=== PATIENT | male | born 1960 | race Caucasian/White ===

== ENCOUNTER 2016-12-30 03:33 | Inpatient (IN) ==
[2016-12-30] MEDS ORDERED: KETOROLAC 30 MG/ML INJECTION IVP ONE (03:44)
[2016-12-30] MEDS ORDERED: METOCLOPRAMIDE 10mg/2ml INJECTION IVP ONE (03:44)
[2016-12-30] MEDS ORDERED: HYDROMORPHONE 2 MG/ML INJECTION IVP ONE (03:44)
--- NOTE | 2016-12-30 03:56 | Emergency Department Report ---
Abdominal Pain HPI - General Stated Complaint: Severe stomach pain Time Seen by Provider: 12/30/16 03:43 Source: patient, family Mode of arrival: ambulatory Limitations: no limitations - History of Present Illness HPI narrative: Patient reports to ED with severe cramping RUQ abdominal pain with radiation to the LUQ that began two hours ago. He is scheduled for a robotic cholecystectomy later today with Dr. Ceron, and has been taking Olin for his gallbladder attacks. He was not able to take his Olin tonight since he is NPO for surgery today. This feels like a typical attack for him, differs only in being more severe. He has been following a strict low fat diet since he started having problems with his gallbladder, which has been helping a little. Pt denies nausea , vomiting, fever, diarrhea. - Related Data Home Medications Medication Instructions Recorded Confirmed No known Home medications [No home 12/29/16 12/29/16 meds] Allergies Allergy/AdvReac Type Severity Reaction Status Date / Time meperidine Allergy Unknown HIVES Verified 12/29/16 11:23 Review of Systems All systems: reviewed and negative except as stated Gastrointestinal: Reports: as per HPI PFSH Patient Stated Medical History Gastroesophageal Reflux Yes Disease cholelithiasis Surgical History: none - Social History Smoking status: Never smoker Physical Exam - General General appearance: alert, in distress (appears to be in pain, tachypneic and groaning loudly) - Normal Exams: Head:: Normocephalic without trauma Neck:: Full range of motion, without adenopathy, JVD, bruits or thyromegaly Chest/Respirations:: Clear all vazquez, with good airflow, and symmetry bilaterally Cardiovascular:: Regular rate and rhythm, without murmur or gallop, Pulses 2+ all extremities, capillary refill, <2 seconds all extremities Integumentary:: No rashes, hives, or bruising noted, hair and nails, without abnormality Neurological:: Patient is alert, and oriented, cranial nerves, motor/sensory/ cerebellar, exams w/o gross deficits, to observation Psychiatric:: Patient exhibits, appropriate attention, emotion and affect - Abdominal Exam Abdominal exam: Present: soft, tenderness (exquisitely TTP on RUQ > LUQ), guarding, rigidity, normal bowel sounds. Absent: distention, trauma, ascites, mass, pulsatile mass Abdominal Pain - MDM Narrative Medical decision making narrative: Pt given dilaudid 0.5 mg IV, toradol 30 mg IV, and reglan 10 mg IV to moderate relief CBC - n CMP/L - significant liver enzyme elevation in the 3-500 range, severe elevated lipase at 36,[address] Ceron, will admit the patient for admission to surgical for obstructive pancreatitis. - Lab Data Result diagrams: 12/30/16 04:15 12/30/16 04:15 Disposition Clinical Impression: Gallstones Pancreatitis due to biliary obstruction Qualifiers: Chronicity: acute Acute pancreatitis complication: no infection or necrosis Qualified Code(s): K85.10 - Biliary acute pancreatitis without necrosis or infection Disposition: 02 To [facility] [place] Acute Care Condition: Improved Prescriptions: No Action No known Home medications [No home meds] 0 #0 [facility] [place] Referrals: Valentin Riojas DO [Family Provider] - - Seen By: physician
[2016-12-30] MEDS ORDERED: NS 1,000 ML IV ONE (04:18)
[2016-12-30] MEDS ORDERED: METOCLOPRAMIDE 10mg/2ml INJECTION IVP PRN (05:09)
[2016-12-30] MEDS: SALINE FLUSH 10ml SYRINGE IVF PRN ×2 (06:17→18:39)
[2016-12-30] MEDS: NS 1,000 ML IV SCH ×2 (06:17→19:38)
[2016-12-30] MEDS: HYDROMORPHONE 2 MG/ML INJECTION IVP PRN ×3 (12:11→23:38)
--- NOTE | 2016-12-30 18:53 | History and Physical ---
DATE OF SERVICE 12/30/2016 FINDINGS Mr. Ledesma is a 56-year-old gentleman who had been scheduled today to undergo a robotic-assisted laparoscopic cholecystectomy secondary to symptomatic cholelithiasis. Patient states that earlier this week he began to experience a component of some abdominal discomfort and felt that he was having another "gallbladder attack." The patient states that last evening he knew he was not going to be able to eat after midnight and had some eggs and toast. Patient states that he had eaten eggs and toast perhaps about 10 o'clock to 11 o'clock at night. Patient states that shortly after this he began to experience a component of severe abdominal pain. Pain was described as being throughout his entire abdomen and radiated in towards his back. Patient states the pain lasted for several hours and he was "not able to get comfortable." As a result of this severe pain he presented to the emergency room facility earlier this morning. Upon laboratory evaluation the patient was found to have marked elevation of his lipase consistent with that of gallstone pancreatitis. Patient was subsequently admitted to the hospital for further care. The patient was seen earlier this morning on rounds. He states that he was feeling significantly better and that his pain had resolved. He was requesting some oral intake. PAST MEDICAL HISTORY CHRONIC ILLNESS/SYSTEM DISORDERS None. PAST SURGICAL HISTORY Colonoscopy. MEDICATIONS [place] 5 on a p.r.n. basis Cialis on a p.r.n. basis ALLERGIES Demerol. SOCIAL HISTORY The patient consumes alcohol. Denies tobacco use. FAMILY HISTORY Significant for diabetes within his mother. Heart disease within his father. REVIEW OF SYSTEMS Review of systems undertaken with the patient and essentially negative except as stated above in FINDINGS section and PAST MEDICAL HISTORY section for Constitutional, HEENT, Cardiac, Respiratory, GI, , Musculoskeletal, Hematology/Oncology, Endocrine, Psychiatric. PHYSICAL EXAM GENERAL: The patient is a 56-year-old gentleman whom I saw earlier this morning. As stated above, he did not appear to be in any VITAL SIGNS: Vitals earlier this morning included a temperature of 99.0, pulse 71, respirations 16, blood pressure 164/84, SAO2 98% on room air. HEENT: Normocephalic. Pupils are equally round and react to light and accommodation. NECK: Supple without lymphadenopathy. CHEST: Clear to auscultation bilaterally. HEART: Regular rate and rhythm. Normal S1 and S2 without gallops, murmurs or clicks. ABDOMEN: Palpation of the abdomen did reveal some mild tenderness within the epigastric region. There was, however, no evidence for guarding or rebound. EXTREMITIES: Without clubbing, cyanosis, or edema. NEURO: Cranial nerves II-XII grossly intact. Patient is without focal motor or sensory deficits. LABORATORY/RADIOGRAPHIC EVALUATION The patient had a CBC upon admission that was unremarkable. CMP was obtained as well as a lipase level. CMP did reveal elevation of his total bilirubin of 3.2. AST, ALT, alkaline phosphatase were elevated at 315, 562 and 217, respectively. Lipase was elevated at 36,764. ASSESSMENT 56-year-old gentleman with gallstone pancreatitis. PLAN I did speak with the emergency room physician last evening and it was my recommendation that we go ahead and admit the patient and continue with ongoing IV fluids, antiemetics and intravenous narcotics as needed for pain. Patient does appear to be improving from a clinical standpoint. His abdominal pain has markedly improved. I do believe that we could go ahead and give the patient some liquids sparingly. Will recheck lipase level and CMP tomorrow. Will continue to follow along closely in the patient's care. Once his lipase level has returned towards normal, at that time may proceed with surgical intervention /robotic-assisted laparoscopic cholecystectomy. If patient's bilirubin continues on an upward trend in addition with his lipase, the patient may need to be transferred to [place] to undergo ERCP. ARNOL
[2016-12-31] MEDS: HYDROMORPHONE 2 MG/ML INJECTION IVP PRN ×4 (07:29→22:16)
[2016-12-31] MEDS: NS 1,000 ML IV SCH (10:12)
--- NOTE | 2016-12-31 11:11 | Consult Note ---
<FaraLenka D - Last Filed: 12/31/16 12:12> Consult Information - Data of Consult Patient: new to practice Requesting Physician: Joe Ceron MD Primary Care Provider: Valentin Riojas DO Family Provider: Valentin Riojas DO - Consult Narrative Reason for consult: HTN History of present illness: Donna Ledesma is a relatively healthy 56-year-old male who is seen in consultation from Dr. Ceron. He was admitted on 12/30/16 for gallstone pancreatitis, under Dr. Ceron's service. His lipase at that time was 36,000. LFTs were also elevated. White count was normal. The patient has had persistently elevated blood pressures up to 181/109, since yesterday morning. There is one outlier low reading of 87/59, but since then blood pressure has mostly been at least moderately elevated, if not higher. The patient reports having a history of hypertension, but has not ever taken any antihypertensives. He denies any chest pain or anginal equivalents, or shortness of breath. No cough/congestion. No weakness/dizziness/lightheadedness or paresthesias. His primary complaints are abdominal in nature, consistent with his primary diagnosis (abdominal pain, nausea/vomiting; no diarrhea/constipation); his abdominal pain is a little better compared to yesterday. His also reports he's had fevers/chills at home. Note: BP in office on 11/23/16 was 138/82; 12/09/16 it was 122/80; 12/15/16 120/78 ; in 2014 it was 140/85 PFSH GERD HTN Obesity Surgical History: colonoscopy 10/07/14 - normal Family History: Mother: Diabetes, hypertension, hyperlipidemia, thyroid disorder. Father: Heart disease, hypertension, hyperlipidemia. - Social History Smoking status: Never smoker Alcohol intake frequency: a few times a week Current occupational status: employed Does patient use chewing tobacco?: Yes Review of Systems All systems: reviewed and no additional remarkable complaints except as stated - Constitutional Constitutional: Present: chills, fever(s). Absent: headache(s) - EENMT Nose: Absent: obstruction Mouth/Throat: Absent: sore throat - Cardiovascular Cardiovascular: Absent: chest pain, syncope Vascular: Absent: pedal edema - Respiratory Respiratory: Absent: cough, dyspnea - Gastrointestinal Gastrointestinal: Present: abdominal pain, nausea, vomiting. Absent: constipation, diarrhea - Genitourinary Genitourinary: Present: other (dark colored urine in the end of October - saw Dr. Riojas) - Musculoskeletal Musculoskeletal: Absent: joint swelling, muscle weakness - Integumentary/Breasts Integumentary: Absent: rash, wounds - Neurological Neurological: Absent: focal weakness, frequent falls, numbness, paresthesias - Psychiatric Psychiatric: Absent: anxiety, depression - Hematologic/Lymphatic Hematologic/Lymphatic: Absent: easy bleeding, easy bruising Medications Home Medications Medication Instructions Recorded Confirmed Type No known Home medications [No home 12/29/16 12/29/16 History meds] Allergies Allergy/AdvReac Type Severity Reaction Status Date / Time meperidine Allergy Unknown HIVES Verified 12/30/16 05:47 Exam Vital Signs: Temperature 97.6 F 12/31/16 07:38 Pulse Rate 77 12/31/16 07:38 Respiratory Rate 16 12/31/16 07:38 Blood Pressure 155/99 H 12/31/16 07:59 Pulse Oximetry 94 12/31/16 07:38 Oxygen Delivery Method Room Air Height: 1.73 m Weight: 91.7 kg - Constitutional Present: mild distress, well nourished, well developed, obese - Routine HEENT Exam ENT: Present: mucous membranes moist, oropharynx clear - Routine Neck Exam Present: supple - Routine Respiratory Exam Present: CTA bilaterally - Routine Cardiovascular Exam Present: RRR, S1, S2 - Routine Abdominal Exam Present: normoactive bowel sounds, tenderness (across upper abdomen) - Routine Extremities Exam Present: no edema, pulses intact, normal capillary refill - Routine Skin Exam Present: intact, dry, warm - Routine Neurological Exam Present: alert, oriented X3 - Routine Psychiatric Exam Present: normal affect, normal thought process Results - Labs CBC & Chem 7: 12/31/16 04:15 12/31/16 04:15 Assessment and Plan (1) Gallstone pancreatitis Current visit: Yes Status: Acute (2) Elevated blood pressure reading Current visit: Yes Status: Acute DVT Prophylaxis: SCD's GI Prophylaxis: Protonix Assessment and Plan: Gallstone pancreatitis -per attending -NPO, IVF, IV narcotics -lipase quickly decreased from 36,764 yesterday to 1513 today; LFTs also down; but total bili increased today -robotic-assisted lap josefa planned once lipase approaches normal range (though if bili and lipase climb, may need ERCP) Elevated BP, suspect underlying HTN -review of clinic records suggest fairly reasonable control -start amlodipine 5 mg daily -check EKG -check TSH -f/u with Dr. Riojas after dc Thank you for this consult - we will follow along with you during his hospital course. D/W Dr. Yung. Hospital Course Summary Disclaimer: The visit summary below is not to be considered part of the above Progress Note. Sepsis Assessment - Evaluation Sepsis screening result: No Definite Risk <Niya Yung - Last Filed: 12/31/16 20:41> Consult Information - Data of Consult Requesting Physician: Joe Ceron MD Primary Care Provider: Valentin Riojas DO Family Provider: Valentin Riojas DO [facility] Patient Stated Medical History Hypertension Yes: takes no meds Gastroesophageal Reflux Yes Disease Other GI Yes: CURRENT JOSEFA/PANCREATITIS Exam Vital Signs: Temperature 97.6 F 12/31/16 07:38 Pulse Rate 82 12/31/16 13:25 Respiratory Rate 16 12/31/16 07:38 Blood Pressure 186/104 H 12/31/16 13:25 Pulse Oximetry 94 12/31/16 07:38 Oxygen Delivery Method Room Air Height: 1.73 m Weight: 91.7 kg Results - Labs CBC & Chem 7: 12/31/16 04:15 12/31/16 04:15 Assessment and Plan (1) Gallstone pancreatitis Current visit: Yes Status: Acute (2) Elevated blood pressure reading Current visit: Yes Status: Acute (3) Abnormal liver enzymes Current visit: Yes Status: Acute Assessment and Plan: I have independently evaluated and examined this patient. I reviewed the chart, the patient's history, and the [employer]'s documented findings as above. We discussed and formulated the assessment and plan as above with additions as below: Mr. Ledesma was seen with his at bedside. Pain control is fairly good and he denied nausea today. Blood pressures have been variable but he denies epistaxis or headache. NAD, alert, fluent speech Respirations nonlabored, good airflow, inspiration triggers increased abdominal discomfort Regular rhythm, S1-S2 Abdomen soft with mild-moderate tenderness in the right upper quadrant and epigastrium, minor guarding present right upper quadrant. EKG reviewed by myself demonstrating sinus rhythm with left axis deviation and normal waveforms. White count normal, bilirubin 4.0, transaminases/alkaline phosphatase elevated but improved from yesterday. Amlodipine initiated earlier today; IV metoprolol prn added this evening for frequent systolic blood pressures 180-190 and diastolics as high as 109. Consider imaging of biliary tree to identify source of biliary obstruction. No indication of infection at this point. Discussed with Dr. Ceron earlier today. Hospital Course Summary Disclaimer: The visit summary below is not to be considered part of the above Progress Note.
[2016-12-31] MEDS: SALINE FLUSH 10ml SYRINGE IVF PRN (11:27)
[2016-12-31] MEDS: D5-1/2NS with KCL 20mEq 1,000 ML IV SCH ×2 (11:28→20:33)
[2016-12-31] MEDS ORDERED: NICOTINE 14 MG PATCH TD PRN (12:14)
[2016-12-31] MEDS: AMLODIPINE 5 MG TABLET PO SCH (13:27)
--- NOTE | 2016-12-31 16:46 | Progress Note ---
DATE OF SERVICE 12/31/2016 FINDINGS Mr. Ledesma today states that he is feeling slightly better. He still notices, however, abdominal discomfort when he moves or "lies in a certain position." EXAM VITAL SIGNS: Afebrile, normotensive. Last recorded vitals include temperature 97.6, pulse 77, respirations 16, blood pressure 155/99, SAO2 94% on room air. HEENT: Normocephalic. Pupils are equally round and react to light and accommodation. CHEST: Clear to auscultation bilaterally. HEART: Regular rate and rhythm. Normal S1 and S2 without gallops, murmurs or clicks. ABDOMEN: Palpation of the abdomen does reveal some minimal tenderness with the epigastric region. I did not appreciate evidence for guarding or rebound. LABORATORY/RADIOGRAPHIC EVALUATION The patient had a CBC today that was unremarkable. White count remains stable at 8.0. Hemoglobin is stable at 14.8. CMP was obtained and his AST, ALT and alkaline phosphatase are slightly improved at 226, 473 and 195, respectively. His total bilirubin, however, is increased to 4.0 from 3.2. Lipase level has markedly improved from 36,000 down to 1500. ASSESSMENT 56-year-old gentleman with gallstone pancreatitis. PLAN The patient has been slightly hypertensive. He informs me that he does have a known history for hypertension but has never sought out medical attention in regards to his hypertension. Will go ahead and consult the hospitalist system for management of his hypertension. From a surgical standpoint, will change his fluids from D5 1/2 NS and increase the rate. Will repeat CMP and lipase levels tomorrow morning. Otherwise, will continue with current care. I do believe the patient is improving both from a clinical and laboratory standpoint. I am concerned, however, that his bilirubin has increased. I question whether or not he has an extrinsic compression of the common bile duct from the parapancreatic edema versus that of a true common bile duct stone. Will repeat lab. If the patient's bilirubin continues to increase over weekend the patient may need to be transferred to [place] for ERCP. If, on the other hand, his lab work will begin on a downward trend, will then likely proceed with laparoscopic cholecystectomy on Tuesday. The above plan/algorithm was discussed with the patient. ARNOL
[2016-12-31] MEDS ORDERED: METOPROLOL 5mg/5ml INJECTION IVP PRN (20:24)
[2017-01-01] MEDS: HYDROMORPHONE 2 MG/ML INJECTION IVP PRN ×4 (02:49→20:37)
[2017-01-01] MEDS: D5-1/2NS with KCL 20mEq 1,000 ML IV SCH ×3 (04:42→22:38)
[2017-01-01] MEDS: AMLODIPINE 5 MG TABLET PO SCH (08:46)
[2017-01-01] MEDS ORDERED: NICOTINE PATCH REMOVAL TD SCH (09:00)
--- NOTE | 2017-01-01 11:38 | Progress Note ---
DATE OF SERVICE 01/01/2017 FINDINGS Mr. Ledesma this morning states that overall he is feeling better. He still is experiencing a component of epigastric abdominal pain. Pain was severe enough this morning that he requested some additional pain medications. Denies any element of nausea or vomiting. EXAM VITAL SIGNS: Afebrile, slightly hypertensive. Current vitals include temperature 98.0, pulse 71, respirations 18, blood pressure 153/100. SAO2 95% on room air. HEENT: Normocephalic. Pupils are equally round and react to light and accommodation. CHEST: Clear to auscultation bilaterally. HEART: Regular rate and rhythm. Normal S1 and S2 without gallops, murmurs or clicks. ABDOMEN: Palpation of the abdomen does still reveal some minimal tenderness within the epigastric region. There is, however, no evidence for guarding or rebound tenderness. LABORATORY/RADIOGRAPHIC EVALUATION The patient had a CBC today that was unremarkable. White count 8.7. Hemoglobin 13.4. CMP was obtained and fortunately his bilirubin has gone from 4.0 down to 2.1. AST, ALT, alkaline phosphatase also continue to improve at 77, 288 and 155, respectively. Lipase level has now essentially returned almost back to normal at 365. ASSESSMENT 56-year-old gentleman with a history for gallstone pancreatitis which is fortunately resolving. PLAN Given the fact that the patient is still having a component of abdominal pain requiring intravenous narcotics, I elected to go ahead and continue with current treatment and not proceed with cholecystectomy today. Will continue to follow the patient from a clinical standpoint. Will repeat lab work tomorrow. Will make the patient n.p.o. after midnight and address the issue about proceeding with surgery tomorrow. One may wish to wait until Tuesday to proceed with surgical intervention since we are not dealing with an acute emergent situation. Again, will reevaluate the patient tomorrow and make a final decision in regards to proceeding with surgery tomorrow versus waiting until Tuesday. Overall the patient is improving and I am pleased with his progress. ARNOL
[2017-01-01] MEDS ORDERED: ACETAMINOPHEN 325 MG TABLET PO PRN (16:07)
[2017-01-01] MEDS ORDERED: NS 100 ML ONE (16:26)
[2017-01-01] MEDS ORDERED: SALINE FLUSH 10ml SYRINGE ONE (16:26)
[2017-01-01] MEDS ORDERED: IOHEXOL 300mg/ml 100ml INJECTION ONE (16:26)
--- NOTE | 2017-01-01 16:36 | Progress Note ---
Subjective: Donna was seen this morning at which time he reported abdominal pain is improved over all those had some increased back pain. Said no nausea or vomiting and is tolerating liquids well. He denied dyspnea, palpitations, fever , or lightheadedness. This afternoon nursing reported temperature of 100.2 without change and pain level. Objective Vital signs: Temperature 100.2 F 01/01/17 16:00 Pulse Rate 86 01/01/17 16:00 Respiratory Rate 20 01/01/17 16:00 Blood Pressure 161/94 H 01/01/17 16:00 Pulse Oximetry 95 01/01/17 16:00 Oxygen Delivery Method Room Air EXAM General-NAD, alert HEENT-minor conjunctival injection, sclera anicteric, oropharynx clear Lungs-respirations nonlabored, good airflow, breath sounds clear Cardiac-regular rate, S1-S2 Abd-soft, minimal tenderness right upper quadrant without guarding, bowel sounds present Ext-without edema Neuro-moving all extremities symmetrically Psych-calm, cooperative - Weight: 93.2 kg Results - Labs CBC & Chem 7: 01/01/17 04:29 01/01/17 04:29 Labs: Differential unremarkable Bilirubin 2.1, AST 77, ALT 288, alk phosphatase 155-all improved Assessment and Plan (1) Gallstone pancreatitis Current visit: Yes Status: Acute (2) Elevated blood pressure reading Current visit: Yes Status: Acute (3) Abnormal liver enzymes Current visit: Yes Status: Acute DVT Prophylaxis: SCD's Resuscitation Status: Full Code Assessment and Plan: Blood pressure control is improved overnight in general with readings of 153/ 101 161/96 today. 143/92 last night. Continue amlodipine with when necessary metoprolol for significant elevations in blood pressure. Liver enzymes improving-suggests biliary tree not obstructed. Overall appears to be making progress however development of fever this afternoon worrisome-blood cultures to be drawn. Deferred imaging/antibiotics to Dr. Ceron. Reassess labs in a.m. Sepsis Assessment - Evaluation Sepsis screening result: No Definite Risk Hospital Course Summary Disclaimer: The visit summary below is not to be considered part of the above Progress Note.
[2017-01-01] MEDS: PIPERACILLIN/TAZOBACTAM 3.375 GM in NS 100 ML IV SCH ×2 (17:08→23:17)
[2017-01-01] MEDS ORDERED: POLYETHYL GLYCOL 3350 17gm PACKET PO PRN (19:06)
[2017-01-01] MEDS: SENNA + DOCUSATE TABLET PO SCH (21:42)
[2017-01-02] MEDS: PIPERACILLIN/TAZOBACTAM 3.375 GM in NS 100 ML IV SCH ×4 (05:15→23:11)
[2017-01-02] MEDS ORDERED: NICOTINE PATCH REMOVAL TD PRN (08:30)
--- NOTE | 2017-01-02 09:31 | XRay Report ---
Indication: ELEVATED TEMP. PANCREATITIS PROCEDURE: XR chest 1V: Encounter: Initial Comparison: None FINDINGS: The lungs are clear. There is no abnormal airspace opacity, pleural effusion or pneumothorax identified. The heart size, pulmonary vasculature and mediastinum are within normal limits. No significant skeletal abnormality is seen. IMPRESSION: No acute cardiopulmonary abnormality. .
--- NOTE | 2017-01-02 10:48 | CT Scan Report ---
Indication: elevated temp. Pancreatitis PROCEDURE: CT abdomen and pelvis wo/w con: Encounter: Initial Comparison: None Technique: Axial CT images were performed through the abdomen and pelvis before and after the administration of intravenous contrast. Coronal and sagittal two-dimensional reformats. Automated Exposure Control and Iterative Reconstruction dose reducing techniques were utilized. Contrast: Omnipaque 300 100 mL Findings: Lung bases show mild atelectasis. Trace right effusion. Noncontrast images show no evidence of renal stone done disease. There is a cortical calcification on the left, presumably chronic. Significant inflammation surrounding the pancreas consistent with the history of pancreatitis. Calcified granuloma in the right middle lobe. Liver is grossly unremarkable. Small gallstones seen in the gallbladder neck. The spleen is normal. No evidence of nonenhancing pancreatic tissue. Postcontrast imaging is limited due to the delayed phase of contrast. There is excretion of contrast from both renal collecting systems and ureters. Multiple bilateral renal cysts, some of which are quite large in the left kidney. No evidence of a bowel obstruction. No free air. Impression: Acute pancreatitis. There is a preliminary report by [facility]. .
[2017-01-02] MEDS: D5-1/2NS with KCL 20mEq 1,000 ML IV SCH ×3 (10:59→21:01)
[2017-01-02] MEDS: AMLODIPINE 5 MG TABLET PO SCH (11:00)
[2017-01-02] MEDS: SENNA + DOCUSATE TABLET PO SCH ×2 (11:00→21:01)
[2017-01-02] MEDS: SALINE FLUSH 10ml SYRINGE IVF PRN (11:06)
--- NOTE | 2017-01-02 15:54 | Progress Note ---
DATE OF SERVICE 01/02/2017 FINDINGS Mr. Ledesma states that he is actually feeling better today. He did have a temperature to 102 yesterday although this is not recorded within the electronic medical record. Patient states that he did not notice that he was feverish or chilled or had increasing pain with this febrile episode. Patient states that he did not require pain medications this morning as he has previously. He states he did have a large bowel movement today. EXAM VITAL SIGNS: Currently temperature 98.1, pulse 74, respirations 14, blood pressure 149/96, SAO2 96% on room air. HEENT: Normocephalic. Pupils are equally round and react to light and accommodation. CHEST: Clear to auscultation bilaterally. HEART: Regular rate and rhythm. Normal S1 and S2 without gallops, murmurs or clicks. ABDOMEN: Palpation of the abdomen today reveals less tenderness within the epigastric region. There is no evidence for guarding or rebound. LABORATORY/RADIOGRAPHIC EVALUATION Given the patient's febrile episode yesterday to 102 we did proceed with additional radiographic evaluation and laboratory evaluation. CBC obtained today is stable. White count stable at 8.9. Hemoglobin is stable at 13.2. CMP was obtained and his bilirubin continues on a downward trend. Bilirubin today is 1.5. AST, ALT, and alkaline phosphatase also improved at 43, 195 and 134, respectively. Lipase has now returned to normal at 97. UA was obtained and found to be negative. Chest x-ray was obtained and found to be negative. CT scan of his abdomen and pelvis was obtained. I did review the CT scan personally this morning as well as reviewed the teleradiologist report. There is significant parapancreatic edema involving the head of the pancreas consistent with his pancreatitis. I did not see any evidence for pseudocyst formation. I did not see any evidence for necrotizing pancreatitis. ASSESSMENT 56-year-old gentleman with history for gallstone pancreatitis. Patient with febrile episode yesterday. The patient continues to improve from a clinical and laboratory standpoint. PLAN Robotic-assisted laparoscopic cholecystectomy with intraoperative cholangiogram. I informed the patient that it would be my recommendation that we proceed with cholecystectomy given resolution of his symptomatology. I do feel there is going to be a fair amount of inflammatory process present. I do feel it would be best to go ahead and wait until tomorrow to proceed with surgery when there is additional staff and assistance available. I do not feel that we are dealing with an emergent situation that has to be addressed today. Will plan on proceeding with surgical intervention/cholecystectomy tomorrow. Will go ahead and give the patient his full liquid diet today. Continue to follow closely. Will continue with broad-spectrum antibiotics given his febrile episode yesterday. ARNOL
[2017-01-02] MEDS: HYDROMORPHONE 2 MG/ML INJECTION IVP PRN ×2 (16:12→21:46)
--- NOTE | 2017-01-02 19:35 | Progress Note ---
Subjective: Dorinda reports he is not feeling too bad today. He's needed minimal pain medication today and is tolerating liquids. Diet has been limited in anticipation of surgery tomorrow. He complains of feeling gassy but reports he had 2 bowel movements today and doesn't feel is distended. He denied dyspnea, fevers, chills, lightheadedness, or nausea. He denied dysuria and is voiding well. Objective Vital signs: Temperature 99.1 F 01/02/17 16:24 Pulse Rate 75 01/02/17 16:24 Respiratory Rate 16 01/02/17 16:24 Blood Pressure 145/86 H 01/02/17 16:24 Pulse Oximetry 95 01/02/17 16:24 Oxygen Delivery Method Room Air NAD, alert Conjunctiva clear, sclera anicteric, neck supple Respirations nonlabored, good airflow, breath sounds clear Regular rhythm, S1-S2 Soft, mild tenderness right upper quadrant, no guarding, bowel sounds present, mild distention Without edema Mood all extremities well Weight: 91.5 kg Results - Labs CBC & Chem 7: 01/02/17 04:35 01/02/17 04:35 Labs: Bilirubin 1.5, AST 43, ALT 195, alkaline phosphatase 134 Microbiology Results: Microbiology 01/01/17 16:38 Peripheral/Iv Start Blood Culture - Preliminary No Growth After 1 Day 01/01/17 16:33 Peripheral/Iv Start Blood Culture - Preliminary No Growth After 1 Day - Imaging and Cardiology CT scan - abdomen Status: image reviewed by me (peripancreatic edema consistent with pancreatitis , increased stool, cholelithiasis without choledocholithiasis, no ductal dilatation) Chest x-ray Status: image reviewed by me (NAD) Assessment and Plan (1) Gallstone pancreatitis Current visit: Yes Status: Acute (2) Elevated blood pressure reading Current visit: Yes Status: Acute (3) Abnormal liver enzymes Current visit: Yes Status: Acute Assessment and Plan: Gallstone pancreatitis Cholelithiasis Hypertension Abnormal liver function tests Low normal platelet count Blood pressure control is improved but blood pressure remains slightly elevated with systolics ranging from 145-161 and diastolics typically in the 90s. Will add low-dose lisinopril 5 mg daily to amlodipine. Continue prn metoprolol for significant elevations in blood pressure. Liver enzymes improving, no evidence of biliary obstruction by CT. Isolated temperature yesterday, chest x-ray unremarkable, no evidence of abscess or ductal obstruction on CT abdomen/pelvis. White count stable. Laparoscopic cholecystectomy anticipated tomorrow. Platelet count is low normal-dropped from 135 to current value of 109-continue to monitor-not on subcutaneous Lovenox/heparin currently. Sepsis Assessment - Evaluation Sepsis screening result: No Definite Risk Hospital Course Summary Disclaimer: The visit summary below is not to be considered part of the above Progress Note.
[2017-01-03] MEDS: PIPERACILLIN/TAZOBACTAM 3.375 GM in NS 100 ML IV SCH ×4 (04:41→23:05)
[2017-01-03] MEDS: D5-1/2NS with KCL 20mEq 1,000 ML IV SCH ×3 (04:42→13:26)
[2017-01-03] MEDS: LISINOPRIL 5 MG TABLET PO SCH (08:14)
[2017-01-03] MEDS: SENNA + DOCUSATE TABLET PO SCH (08:15)
[2017-01-03] MEDS: AMLODIPINE 5 MG TABLET PO SCH (08:15)
--- NOTE | 2017-01-03 10:00 | Progress Note ---
<Emelyn Gray V - Last Filed: 01/03/17 09:47> Subjective: Donna is seen this morning in follow up consultation for HTN. He is resting this morning and reports he is feeling good. Denies aspirin, palpitations, dizziness or GI complaints. BP has remained better controlled- 137/68. Currently NPO for surgery. Objective Vital signs: Temperature 97.2 F 01/03/17 07:30 Pulse Rate 68 01/03/17 07:30 Respiratory Rate 14 01/03/17 07:30 Blood Pressure 137/68 01/03/17 07:30 Pulse Oximetry 96 01/03/17 07:30 Oxygen Delivery Method Room Air Weight: 91.5 kg - Constitutional Present: no acute distress - Routine HEENT Exam Head: Present: normocephalic, atraumatic Eye: Present: EOMI, PERRL ENT: Present: mucous membranes moist - Routine Respiratory Exam Present: CTA bilaterally - Routine Cardiovascular Exam Present: RRR, S1, S2 - Routine Abdominal Exam Present: soft, normoactive bowel sounds - Routine Extremities Exam Present: full ROM - Routine Back/Spine/Pelvis Exam Back/Spine: Present: full ROM - Routine Skin Exam Present: intact, dry, warm - Routine Neurological Exam Present: alert, oriented X3, CN II-XII intact - Routine Psychiatric Exam Present: normal affect, normal thought process Results - Labs CBC & Chem 7: 01/03/17 04:14 01/03/17 04:14 Microbiology Results: Microbiology 01/01/17 16:38 Peripheral/Iv Start Blood Culture - Preliminary No Growth After 1 Day 01/01/17 16:33 Peripheral/Iv Start Blood Culture - Preliminary No Growth After 1 Day Assessment and Plan (1) Gallstone pancreatitis Current visit: Yes Status: Acute (2) Elevated blood pressure reading Current visit: Yes Status: Acute (3) Abnormal liver enzymes Current visit: Yes Status: Acute Assessment and Plan: 01/03/17 Gallstone pancreatitis Cholelithiasis Hypertension Abnormal liver function tests Low normal platelet count Plan Blood pressure continues to be well controlled. 137/68 this morning. Recommend continuing with dual agent coverage with Norvasc and Lisinopril. metoprolol IV PRN for significant elevations in blood pressure. Planning for Laparoscopic cholecystectomy today with Dr Ceron Otherwise appears medically stable. Will discuss further plan with attending, Dr Xie Sepsis Assessment - Evaluation Sepsis screening result: No Definite Risk Hospital Course Summary Disclaimer: The visit summary below is not to be considered part of the above Progress Note. Hospital Course: 01/03/17 Plan Blood pressure continues to be well controlled. 137/68 this morning. Recommend continuing with dual agent coverage with Norvasc and Lisinopril. metoprolol IV PRN for significant elevations in blood pressure. Planning for Laparoscopic cholecystectomy today with Dr Ceron Otherwise appears medically stable. Will discuss further plan with attending, Dr Xie <Jose David Xie - Last Filed: 01/03/17 18:05> Objective Vital signs: Temperature 97.3 F 01/03/17 15:51 Pulse Rate 59 L 01/03/17 17:06 Respiratory Rate 18 01/03/17 15:51 Blood Pressure 126/81 01/03/17 17:06 Pulse Oximetry 93 01/03/17 17:06 Oxygen Delivery Method Room Air Results - Labs CBC & Chem 7: 01/03/17 04:14 01/03/17 04:14 Microbiology Results: Microbiology 01/01/17 16:38 Peripheral/Iv Start Blood Culture - Preliminary No Growth After 2 Days 01/01/17 16:33 Peripheral/Iv Start Blood Culture - Preliminary No Growth After 2 Days Assessment and Plan (1) Gallstone pancreatitis Current visit: Yes Status: Resolved (2) Abnormal liver enzymes Current visit: Yes Status: Acute (3) HTN (hypertension) Current visit: Yes Status: Acute (4) Thrombocytopenia Current visit: Yes Status: Acute DVT Prophylaxis: SCD's Resuscitation Status: Full Code Assessment and Plan: Have independently interviewed and examined pt. Chart reviewed. Case discussed with CM and my RENAL DIALYSIS RN. Above care plan developed with my supervision; agree with above. Doing well this evening. Tolerated Sx well. Notes minimal abdominal incision pain. No nausea. Feels hungry (but knows not to overdo eating). Breathing without problems-not SOA or congested. Reports uses his IS frequently. Denies new problems. GEN: WDWNWM looks comfortable. CV: regular Lungs: Clear AB: Soft nd, BS decreased MSE: awake alert appropriate. Communicates well. Thoughts linear Lab overview: Platelets trending upwards. AST normalized with ALT trending down. Bili decreased to 1.4 today. Creatinine stable. Plan: Diet advanced by Sx-did advise caution with oral intake. BP controlled well with current medications; will continue. Encourage IS use. Recheck CMP in am due to elevated liver enzymes and ELIZABETH use. Check CBC in am due to thrombocytopenia. Continue with post operative care. Medically improving. - Time spent with patient 25 - 35 minutes Hospital Course Summary Disclaimer: The visit summary below is not to be considered part of the above Progress Note.
[2017-01-03] MEDS: HYDROMORPHONE 2 MG/ML INJECTION IVP PRN (11:53)
[2017-01-03] MEDS ORDERED: SALINE FLUSH 10ml SYRINGE ONE (12:11)
[2017-01-03] MEDS ORDERED: INDOCYANINE GREEN 25mg INJECTION ONE (12:11)
--- NOTE | 2017-01-03 12:59 | Anesthesia Preoperative Report ---
Anesthesia Preoperative Record - Date and Time Date: 01/03/17 Preoperative Diagnosis: Obstructive Pancreatitis Proposed Procedure: Robotic assisted, laparoscopic choleycystectomy. NPO Since Date: 01/03/17 NPO Since Time: 00:00 Allergies/Adverse Reactions: Allergies Allergy/AdvReac Type Severity Reaction Status Date / Time meperidine Allergy Unknown HIVES Verified 12/30/16 05:47 - Vital Signs Vital Signs: Temperature 99.0 F 01/03/17 12:53 Pulse Rate 62 01/03/17 12:53 Respiratory Rate 14 01/03/17 12:53 Blood Pressure 124/75 01/03/17 12:53 Pulse Oximetry 95 01/03/17 12:53 Oxygen Delivery Method Room Air Height and Weight: Weight 91.5 kg - Medications Inpatient Medications: Current Medications Acetaminophen (Tylenol) 325 - 650 mg PO Q4H PRN PRN Reason: Discomfort Last Admin: 01/01/17 16:18 Dose: 650 mg Amlodipine Besylate (Norvasc) 5 mg PO DAILY [facility] Last Admin: 01/03/17 08:15 Dose: 5 mg Hydromorphone HCl (Dilaudid) 0.5 mg IVP Q3H PRN PRN Reason: Pain Last Admin: 01/03/17 11:53 Dose: 0.5 mg Potassium Chloride/Dextrose/Sod Cl (D5-1/2ns With Kcl 20meq) 1,000 mls @ 125 mls/hr IV .Q8H [facility] Last Infusion: 01/03/17 11:31 Dose: 125 mls/hr Piperacillin Sod/Tazobactam (Sod 3.375 gm/ Sodium Chloride) 100 mls @ 200 mls/ hr IV Q6H [facility] Last Infusion: 01/03/17 11:31 Dose: Infused Lisinopril (Prinivil) 5 mg PO DAILY [facility] Last Admin: 01/03/17 08:14 Dose: 5 mg Metoclopramide HCl (Reglan) 10 mg IVP Q6H PRN Metoprolol Tartrate (Lopressor) 5 mg IVP Q6H PRN PRN Reason: Hypertension Nicotine (Nicoderm) 14 mg TD DAILY PRN Nicotine (Nicotine Patch Removal) 1 removal TD DAILY PRN Polyethylene Glycol (Miralax) 17 gm PO DAILY PRN PRN Reason: Constipation Senna/Docusate Sodium (Senna Plus Tablet) 2 tab PO BID [facility] Last Admin: 01/03/17 08:15 Dose: 2 tab Sodium Chloride (Iv Flush) 10 - 80 ml IVF PRN PRN PRN Reason: Flushing Last Admin: 01/02/17 11:06 Dose: 10 ml Home Medications: Home Medications Medication Instructions Recorded Confirmed Type No known Home medications [No home 12/29/16 12/29/16 History meds] - Medical History Respiratory: DENIES: Asthma, Bronchitis, Chronic Obstructive Pulmonary Disease (COPD), Dyspnea, Orthopnea, Pulmonary Embolism, Pneumonia, Upper Respiratory Infection, Pulmonary Edema, Sleep Apnea, Tuberculosis, Other Cardiovascular: Reports: High Cholesterol (not on meds ) DENIES: Hypertension (newly dx and treated while in hospital.) Gastrointestional: Reports: Gastroesophageal Reflux Disease (poorly controlled.) Renal/Endocrine: DENIES: Diabetes Mellitus Type 1, Diabetes Mellitus Type 2, Renal Failure, Dialysis, Thyroid Disease, Weight Loss, Weight Gain, Other Other History: DENIES: Anesthesia Reactions, Now, Blood Transfusions, Chemotherapy , Cancer, Hemophilia, Malignant Hyperthermia, Sickle Cell Disease, Other - Surgical History Anesthesia Reactions: None Hx Family Anesthesia Reaction: No History of Motion Sickness: No - Social History Smoking Status: Never smoker Hx Chewing Tobacco Use: Yes Substance Use Type: does not use Alcohol Intake Frequency: a few times a week - Pertinent Findings Laboratory: CBC and BMP 01/03/17 04:14 01/03/17 04:14 BMP 01/03/17 04:14 Sodium 138 Potassium 3.7 Chloride 100 Carbon Dioxide 29 BUN 11.0 Creatinine 0.8 Glucose 111 H Calcium 8.9 Liver Function 01/03/17 Range/Units 04:14 Total Bilirubin 1.40 H (0.20-1.30) MG/DL AST 28 (17-59) U/L ALT 147 H (21-72) U/L Alkaline Phosphatase 117 (38-126) U/L Albumin 3.6 (3.5-5.0) G/DL EKG Rhythm: Normal Sinus Rhythm - Physical Exam Respiratory Exam: Present: lungs clear, bilateral breath sounds equal Cardiovascular Exam: Present: regular rate and rhythm, no murmur - Airway Assessment Mallampati Score: II TMD: 3 Fingerbreadths Neck Extension: good Teeth: other (some chipped and missing, no loose.) Overall Assessment: no airway concerns - ASA ASA Score: 2 - Plan Anesthesia: General Inhalation Gases - Discussion Discussion: Discussed risks/options/alternatives of anesthesia and questions answered. Patient consents. Nursing pain assessment noted. Present for Discussion: spouse Attestation Statement: Prior to the delivery of any anesthetic medication, I examined the patient, developed the plan, obtained the patient's consent and discussed the risk and benefits of the procedure with the patient/guardian. - Additional Information Seen by Anesthesia: Yes
[2017-01-03] MEDS ORDERED: BUPIVACAINE 0.25%/EPI 1:200,000 30ml SDV ONE (13:01)
[2017-01-03] MEDS: LR 1,000 ML IV SCH ×3 (13:05→15:56)
[2017-01-03] MEDS ORDERED: ONDANSETRON 4 MG/2 ML INJECTION ONE (13:07)
[2017-01-03] MEDS ORDERED: LIDOCAINE 2% (100mg/5mL) PF 5ml vl ONE (13:07)
[2017-01-03] MEDS ORDERED: PROPOFOL 20 ML ONE (13:07)
[2017-01-03] MEDS ORDERED: DiphenhydrAMINE 50 MG/ML INJECTION ONE (13:07)
[2017-01-03] MEDS ORDERED: NEOSTIGMINE 10 MG/10 ML INJECTION ONE (13:07)
[2017-01-03] MEDS ORDERED: FentaNYL 100 MCG/2 ML INJECTION ONE (13:07)
[2017-01-03] MEDS ORDERED: GLYCOPYRROLATE 0.4 MG/2 ML INJECTION ONE (13:07)
[2017-01-03] MEDS ORDERED: ROCURONIUM 50 MG/5 ML INJECTION IVP ONE (13:07)
[2017-01-03] MEDS ORDERED: SUCCINYLCHOLINE 20mg/mL 10mL INJECTION ONE (13:07)
[2017-01-03] MEDS: INDOCYANINE GREEN 25mg INJECTION IVP ONE ×2 (13:20→15:56)
[2017-01-03] MEDS: SALINE FLUSH 10ml SYRINGE IV ONE ×2 (13:20→15:56)
[2017-01-03] MEDS ORDERED: IOHEXOL 300mg/ml 50ml INJECTION ONE (13:59)
[2017-01-03] MEDS: BUPIVACAINE 0.25%/EPI 1:200,000 30ml SDV ID ONE ×2 (14:50→15:57)
--- NOTE | 2017-01-03 14:58 | General Surgery Procedure Note ---
Date of Procedure: 01/03/17 Surgeon: Osmany Dehydration Plant Operator: Walter Carreno APRN Anesthesia: General Inhalation Gases Postoperative Diagnosis: Gallstone pancreatitis Procedure: Robotic assisted laparoscopic cholecystectomy with Firefly imaging and intraoperative cholangiogram. Estimated Blood Loss: See Anesthesia Record.
[2017-01-03] MEDS ORDERED: HYDROMORPHONE 2 MG/ML INJECTION IVP PRN ×2 (15:28→15:50)
[2017-01-03] MEDS ORDERED: ONDANSETRON 4 MG/2 ML INJECTION IVP PRN ×2 (15:28→15:50)
--- NOTE | 2017-01-03 15:38 | Remote Fluorsocopy Report ---
Indication: ROBOTIC CHOLANGIOGRAM PROCEDURE: RF cholangiogram operative: Comparison: None Findings: fluoroscopic spot images are submitted from an intraoperative cholangiogram. Images demonstrate injection of contrast into the cystic duct with filling of the common duct and intrahepatic biliary tree. No discrete filling defects are identified. Contrast flows into the duodenum. Impression: Intraoperative fluoroscopy as above. Please refer to the dictated operative note for further details. .
--- NOTE | 2017-01-03 15:44 | Anesthesia Postoperative Note ---
- Date and Time Date: 01/03/17 Time: 15:42 - Status Patient Participated in Evaluation: Patient Participated in Person Vital Signs: Temperature 97.5 F 01/03/17 15:11 Pulse Rate 61 01/03/17 15:30 Respiratory Rate 16 01/03/17 15:30 Blood Pressure 124/72 01/03/17 15:30 Pulse Oximetry 95 01/03/17 15:30 Oxygen Delivery Method Room Air Respiratory Function: Airway Patent Cardiovascular Function: Regular Pulse EKG Rhythm: Normal Sinus Rhythm Mental Status: Alert and Oriented Pain Intensity: 2 Complications During Recover: None Apparent - Follow-Up Instructions Instructions: Per Surgeon
[2017-01-03] MEDS ORDERED: KETOROLAC 30 MG/ML INJECTION IVP PRN (15:50)
[2017-01-03] MEDS ORDERED: IBUPROFEN 200 MG TABLET PO PRN (15:50)
--- NOTE | 2017-01-03 16:20 | Progress Note ---
DATE 01/03/2017 FINDINGS Mr. Ledesma was seen earlier today. He informed me that his abdominal pain has essentially resolved. He states he was feeling well. He states that he was "ready to proceed with surgery". OBJECTIVE VITALS: Afebrile. Normotensive. Please refer to EMR. Last recorded vitals include temperature 99.0, pulse 67, respirations 14, blood pressure 124/75, SaO2 95% on room air. CHEST: Clear to auscultation bilaterally. HEART: Regular rate and rhythm. Normal S1, S2, without gallops, murmurs or clicks. ABDOMEN: Palpation of the abdomen revealed it to be soft and completely nontender. No evidence for guarding or rebound. LABORATORY/RADIOGRAPHIC EVALUATION The patient had a CBC today that was unremarkable. CMP was obtained and found to be essentially within normal limits. Total bilirubin was minimally elevated at 1.4. ALT was minimally elevated at 147. Lipase had returned to normal at 57. ASSESSMENT 56-year-old gentleman with gallstone pancreatitis. PLAN Robotic assisted laparoscopic cholecystectomy. I informed the patient earlier today that it would be my recommendation to proceed with surgery. The patient understood and wished to proceed. ARNOL
[2017-01-03] MEDS: HYDROCODONE/APAP 5mg/325mg TABLET PO PRN ×2 (16:22→23:12)
[2017-01-04 04:11] VITALS: RESP 16; O2SAT 94
[2017-01-04] MEDS: PIPERACILLIN/TAZOBACTAM 3.375 GM in NS 100 ML IV SCH (05:08)
--- NOTE | 2017-01-04 07:26 | Discharge Instructions ---
Discharge Plan - Med Rec/Dispo Referrals/Follow Up: Lizbeth Carreno APRN [Advanced Practice Nurse] - 01/11/17 Valentin Riojas DO [Family Provider] - 3 Weeks (for BP evaluation and management) Prescriptions: New Amlodipine [Norvasc] 5 mg PO DAILY #30 tablet Hydrocodone/APAP 5/325 [[place] 5/325] 1 - 2 tab PO Q5H PRN tablet PRN Reason: Pain Ibuprofen [Motrin] 400 mg PO Q6H PRN tablet PRN Reason: Pain No Action No known Home medications [No home meds] 0 #0 misc - Disposition 01 Discharged Home, Self-Care
--- NOTE | 2017-01-04 07:35 | General Surgery Progress Note ---
Subjective Patient reports: tolerating a regular diet, voiding w/o difficulty (He has taken only some [place] for pain post op. Denies nausea, chest pain, SOA. He feels comfortable with discharge today.) - Vital Signs Last Vital Signs Temp 97.0 F 01/04/17 04:10 Pulse 79 01/04/17 04:10 Resp 16 01/04/17 04:10 BP 118/69 01/04/17 04:10 Pulse Ox 94 01/04/17 04:10 - Laboratory Result Diagrams: 01/04/17 03:54 01/04/17 03:54 - Microbiogy Microbiology 01/01/17 16:38 Peripheral/Iv Start Blood Culture - Preliminary No Growth After 2 Days 01/01/17 16:33 Peripheral/Iv Start Blood Culture - Preliminary No Growth After 2 Days - Normal Exam General: no acute distress Cardiovascular: regular rate Respiratory: no labored breathing Abdominal: appropriately tender (at trocar sites) Psychiatric: normal affect Wound/Stoma/Drain Assessment - Wound Management Abdomen Wound Type: Surgical Incision (C-D-I with Dermabond glue in tact) Secondary Dressing: Surgical Glue Assessment and Plan (1) Gallstone pancreatitis Current Visit: Yes Status: Resolved (2) Abnormal liver enzymes Current Visit: Yes Status: Resolved (3) HTN (hypertension) Current Visit: Yes Status: Chronic Qualifiers: Hypertension type: unspecified Qualified Code(s): I10 - Essential (primary ) hypertension (4) Thrombocytopenia Current Visit: Yes Status: Resolved Plan: DC to home today. Discharge instructions reviewed. 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 No heavy lifting for about 3-4 weeks. He has 20-25 NORCO at home, no additional Rx written. Rx for Norvasc e-scripted and appointment with Dr. Riojas in 2-3 weeks for HTN evaluation. Routine post op appointment January 11 Hospital Course Summary Disclaimer: The visit summary below is not to be considered part of the above Progress Note. Hospital Course: 01/03/17 Plan Blood pressure continues to be well controlled. 137/68 this morning. Recommend continuing with dual agent coverage with Norvasc and Lisinopril. metoprolol IV PRN for significant elevations in blood pressure. Planning for Laparoscopic cholecystectomy today with Dr Ceron Otherwise appears medically stable. Will discuss further plan with attending, Dr Xie 01/04/17 07:41 DC to home today. Discharge instructions reviewed. 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 No heavy lifting for about 3-4 weeks. He has 20-25 NORCO at home, no additional Rx written. Rx for Norvasc and Lisinopril e-scripted and appointment with Dr. Riojas in 2-3 weeks for HTN evaluation. Routine post op appointment January 11 Sepsis Assessment - Evaluation Sepsis screening result: No Definite Risk
--- NOTE | 2017-01-04 07:46 | Discharge Instructions ---
Discharge Plan - Med Rec/Dispo Referrals/Follow Up: Lizbeth Carreno, GINI [Advanced Practice Nurse] - 01/11/17 Valentin Riojas DO [Family Provider] - 3 Weeks (for BP evaluation and management) Prescriptions: New Amlodipine [Norvasc] 5 mg PO DAILY #30 tablet Hydrocodone/APAP 5/325 [[place] 5/325] 1 - 2 tab PO Q5H PRN tablet PRN Reason: Pain Ibuprofen [Motrin] 400 mg PO Q6H PRN tablet PRN Reason: Pain Lisinopril [Prinivil] 5 mg PO DAILY #30 tablet No Action No known Home medications [No home meds] 0 #0 misc - Disposition 01 Discharged Home, Self-Care
[2017-01-04 07:48] VITALS: BP 134/92; PULSE 71; TEMP 98
--- NOTE | 2017-01-04 07:51 | Discharge Summary ---
Discharge Information Date of admission: 12/30/16 05:37 Attending Physician: Joe Ceron MD Primary care physician: Valentin Riojas DO Consults: 12/31/16 08:36 Physician Consult [CONS] Routine Consulting Provider: Niya Yung Reason For Exam: Hypertension Ordering Provider has Notified Grapple Crew Leader: No Comment: Please consult hospitalist group to address HTN - Discharge Diagnosis (1) Gallstone pancreatitis Status: Resolved (2) Abnormal liver enzymes Status: Resolved (3) HTN (hypertension) Qualifiers: Hypertension type: unspecified Qualified Code(s): I10 - Essential (primary ) hypertension Status: Chronic (4) Thrombocytopenia Status: Resolved - Procedures Procedures: 01-03-2017 Robotic assisted laparoscopic cholecystectomy with Firefly imaging and Intraoperative Cholangiogram. - Laboratory Labs: 01/04/17 03:54 01/04/17 03:54 Laboratory Tests 12/31/16 12/31/16 01/01/17 04:15 04:15 04:29 WBC 8.0 8.7 Hgb 14.8 13.4 L Plt Count 114 L 105 L Total Bilirubin 4.00 H AST 226 H ALT 473 H Alkaline Phosphatase 195 H Lipase 1513 H D 01/01/17 01/02/17 01/02/17 04:29 04:35 04:35 WBC 8.9 Hgb 13.2 L Plt Count 109 L Total Bilirubin 2.10 H 1.50 H AST 77 H D 43 ALT 288 H 195 H Alkaline Phosphatase 155 H 134 H Lipase 365 H 97 01/03/17 01/03/17 01/04/17 04:14 04:14 03:54 WBC 8.4 Hgb 13.3 L Plt Count 114 L Total Bilirubin 1.40 H 1.00 AST 28 30 ALT 147 H 112 H Alkaline Phosphatase 117 100 Lipase 57 - Microbiology Microbiology 01/01/17 16:38 Peripheral/Iv Start Blood Culture - Preliminary No Growth After 2 Days 01/01/17 16:33 Peripheral/Iv Start Blood Culture - Preliminary No Growth After 2 Days - History of Present Illness HPI: Mr. Ledesma is a 56-year-old gentleman who had been scheduled today to undergo a robotic-assisted laparoscopic cholecystectomy secondary to symptomatic cholelithiasis. Patient states that earlier this week he began to experience a component of some abdominal discomfort and felt that he was having another "gallbladder attack." The patient states that last evening he knew he was not going to be able to eat after midnight and had some eggs and toast. Patient states that he had eaten eggs and toast perhaps about 10 o'clock to 11 o'clock at night. Patient states that shortly after this he began to experience a component of severe abdominal pain. Pain was described as being throughout his entire abdomen and radiated in towards his back. Patient states the pain lasted for several hours and he was "not able to get comfortable." As a result of this severe pain he presented to the emergency room facility earlier this morning. Upon laboratory evaluation the patient was found to have marked elevation of his lipase consistent with that of gallstone pancreatitis. Patient was subsequently admitted to the hospital for further care. Hospital Course This is a general summary of the patient's hospital course. For more details refer to the complete medical record. 12-31-2016 Hospitalist consult: Elevated BP, suspect underlying HTN -review of clinic records suggest fairly reasonable control -start amlodipine 5 mg daily -check EKG -check TSH -f/u with Dr. Riojas after dc 01-01-2017 Surgery note: Given the fact that the patient is still having a component of abdominal pain requiring intravenous narcotics, I elected to go ahead and continue with current treatment and not proceed with cholecystectomy today. Hospitalist note: Blood pressure control is improved but blood pressure remains slightly elevated with systolics ranging from 145-161 and diastolics typically in the 90s. Will add low-dose lisinopril 5 mg daily to amlodipine. Continue prn metoprolol for significant elevations in blood pressure. 01-02-2017 Surgery Note: Lipase normal and LFT's trending down. Plan Robotic-assisted laparoscopic cholecystectomy with intraoperative cholangiogram tomorrow. 01/03/17 Blood pressure continues to be well controlled. 137/68 this morning. Recommend continuing with dual agent coverage with Norvasc and Lisinopril. metoprolol IV PRN for significant elevations in blood pressure. Otherwise appears medically stable. 01/04/17 07:41 DC to home today. Discharge instructions reviewed. 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 No heavy lifting for about 3-4 weeks. He has 20-25 NORCO at home, no additional Rx written. Rx for Norvasc and Lisinopril e-scripted and appointment with Dr. Riojas in 2-3 weeks for HTN evaluation. Routine post op appointment January 11 01/03/17 Hospital course: 12-31-2016 Hospitalist consult: Elevated BP, suspect underlying HTN -review of clinic records suggest fairly reasonable control -start amlodipine 5 mg daily -check EKG -check TSH -f/u with Dr. Riojas after dc 01-01-2017 Surgery note: Given the fact that the patient is still having a component of abdominal pain requiring intravenous narcotics, I elected to go ahead and continue with current treatment and not proceed with cholecystectomy today. Hospitalist note: Blood pressure control is improved but blood pressure remains slightly elevated with systolics ranging from 145-161 and diastolics typically in the 90s. Will add low-dose lisinopril 5 mg daily to amlodipine. Continue prn metoprolol for significant elevations in blood pressure. 01-02-2017 Surgery Note: Lipase normal and LFT's trending down. Plan Robotic-assisted laparoscopic cholecystectomy with intraoperative cholangiogram tomorrow. 01/03/17 Blood pressure continues to be well controlled. 137/68 this morning. Recommend continuing with dual agent coverage with Norvasc and Lisinopril. metoprolol IV PRN for significant elevations in blood pressure. Otherwise appears medically stable. 01/04/17 07:41 DC to home today. Discharge instructions reviewed. 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 No heavy lifting for about 3-4 weeks. He has 20-25 NORCO at home, no additional Rx written. Rx for Norvasc and Lisinopril e-scripted and appointment with Dr. Riojas in 2-3 weeks for HTN evaluation. Routine post op appointment January 11 Time spent with patient: greater than 35 minutes DVT Prophylaxis: SCD's Discharge Plan - Med Rec/Dispo Referrals/Follow Up: Lizbeth Carreno APRN [Advanced Practice Nurse] - 01/11/17 Valentin Riojas DO [Family Provider] - 3 Weeks (for BP evaluation and management) Prescriptions: New Amlodipine [Norvasc] 5 mg PO DAILY #30 tablet Hydrocodone/APAP 5/325 [D[place]widdie 5/325] 1 - 2 tab PO Q5H PRN tablet PRN Reason: Pain Ibuprofen [Motrin] 400 mg PO Q6H PRN tablet PRN Reason: Pain Lisinopril [Prinivil] 5 mg PO DAILY #30 tablet No Action No known Home medications [No home meds] 0 #0 misc - Disposition 01 Discharged Home, Self-Care
--- NOTE | 2017-01-04 08:19 | Operative Note ---
DATE OF PROCEDURE: 01/03/2017 SURGEON Joe Ceron MD INTERNATIONAL LOGISTICS COORDINATOR Walter Carreno APRN PREOPERATIVE DIAGNOSIS Gallstone pancreatitis/symptomatic cholelithiasis. POSTOPERATIVE DIAGNOSIS Gallstone pancreatitis/symptomatic cholelithiasis. PROCEDURE PERFORMED Robotic-assisted laparoscopic cholecystectomy with intraoperative use of Firefly biliary imaging and intraoperative cholangiography. ANESTHESIA General endotracheal EBL AND FLUIDS Please see chart. BRIEF HISTORY/INDICATIONS Mr. Ledesma is a 56-year-old gentleman who last midweek was scheduled to undergo an elective laparoscopic cholecystectomy. Prior to his surgery date the patient , unfortunately, presented with gallstone pancreatitis. The patient has been managed medically for his pancreatitis over the course of the last 5 days or so. His lipase level upon admission was around 36,000. It has now returned to normal. The patient's liver function tests were also found to be quite elevated upon admission. His liver function tests have essentially returned to normal. Patient's severe abdominal pain that he had presented with is also resolved at this juncture in time. It was therefore recommended that he undergo surgical intervention/cholecystectomy. For completeness please refer to notes included in the patient's chart. FINDINGS Upon laparoscopy, liver edge was smooth without nodularities. There were some findings suggestive of fat saponification within the peritoneal cavity as a result of his prior bouts of pancreatitis. Gallbladder was found to be somewhat thickened in nature and contained a component pericholecystic fluid. A standard laparoscopic cholecystectomy was able to be completed. Intraoperative cholangiogram was also obtained and found to be within normal limits. DESCRIPTION OF PROCEDURE After informed consent was obtained, the patient was brought to the operative suite and placed on the table in supine fashion. The abdomen was prepped and draped in sterile fashion. Formal time-out was then completed. 0.25% Marcaine with epinephrine was injected just beneath the level of the umbilicus. A 2 cm curved incision was then made through the area of analgesia. Dissection was carried down through deep subcuticular tissues to the underlying fascia. The fascia was then grasped with two Liu clamps and retracted anteriorly. A 1 cm incision was then made between the two Liu clamps. A hemostat was then introduced in the fascial incision and gently spread. A U-stitch was then placed with 0 Vicryl. A 12 mm [place] port was then placed in the peritoneal cavity and pneumoperitoneum was established to a patient pressure of 15 mmHg utilizing carbon dioxide. Next, two additional 8-mm da Molly ports were then placed under direct visualization within the left upper quadrant and right midabdomen. An additional 5 mm assist port was then placed along the right lateral abdominal wall. Again, each port site was preinjected with 0.25% Marcaine with epinephrine and placed under direct visualization. Abdominal cavity was explored via laparoscopic.. Findings were as noted above. Next, the robot was then docked overlying the patient's right shoulder at a 45-degree angle. The patient was placed in reverse Trendelenburg and slightly rotated towards his left. Hook cautery was placed in robotic arm 1. Fenestrated bipolar grasper was placed in robotic arm 2. Fundus of the gallbladder was then grasped and retracted in cephalad fashion. This was performed by my facilities assistant. Next, there was some omentum adherent to the gallbladder indicative of prior inflammation. This omentum was dissected free from the gallbladder with use of electrocautery as well as with blunt dissection. At no point in time was electrocautery performed adjacent to a hollow viscus such as transverse colon, duodenum or stomach. Next the infundibular portion of the gallbladder was then grasped and retracted a lateral and slightly caudad fashion to allow exposure of triangle of Calot. Dissection was begun high upon the infundibulum of the gallbladder with the use of electrocautery. Cystic duct and cystic artery were identified and dissected free circumferentially. Posterior aspect of the infundibulum was also freed from the underlying liver bed fossa. A Hem-o-saba clip was then placed upon the cystic artery upon the midportion of the infundibulum of the gallbladder. Additional Hem-o-saba clip was then placed just proximally. Cystic artery was then divided between the two clips. Next, an additional Hem-o-saba clip was then placed upon the cystic duct near its junction with the infundibulum. Ductotomy was then made just proximally. Robotic arm #1 one was removed. Cholangiocatheter was then placed with robotic arm 1 and into the ductotomy. Robot was then completely undocked at this time. A cholangiogram was obtained. Under fluoroscopy one could see a moderate length of the cystic duct before entering into the common bile duct. Distally one could see good flow into the duodenum with an appropriate distal taper of the common bile duct. No filling defects were noted. Proximally one could see the intrahepatic radicles, left and right hepatic ducts and the common hepatic. Again, no filling defects were noted. Cholangiocatheter was then removed. It should be noted as well that following the ductotomy two to three small stones were able to be expressed through the ductotomy before insertion of the cholangiocatheter. Next, the robot was then re-docked overlying the patient's right shoulder. Two Hem-o-saba clips was placed proximal upon the cystic duct and the cystic duct was then divided between the two distal clips. The gallbladder was dissected off the liver bed fossa with the use of electrocautery. Next, the robot was then undocked. The gallbladder was then placed within a laparoscopic retrieval bag and removed via the umbilical port site. [place] port was then replaced. Pneumoperitoneum was reestablished. Additional irrigation was then performed and irrigant was suctioned till clear. Gallbladder fossa was hemostatic in nature. Previously placed Hem-o-saba clips were visualized and remained intact. Additionally, it should be noted that Firefly biliary imaging was performed during the process of dissection of the cystic duct. The cystic duct did fluoresce quite well. Firefly biliary imaging did aid in the dissection of the triangle of Calot. Additionally it should be noted that following dissection of the gallbladder off the liver bed fossa, Firefly biliary imaging was performed and there was no evidence for biliary leak to suggest an accessory duct from the gallbladder fossa. Once the gallbladder had been removed and the previously placed [place] port had been replaced, all ports were removed under direct visualization. Pneumoperitoneum was then released and the remaining [place] port was then removed. Previously placed U stitch was then secured imbricating the fascia at the infraumbilical port site. All skin incisions were then closed in a subcuticular fashion with 4-0 Monocryl. Dermabond was then placed overlying the incisions. The patient is in the process of awakening from his anesthetic and will be sent back to the recovery room once deemed in stable condition. Additionally, it should be noted that Walter Carreno APRN, was present throughout the entire case and played a pivotal role in providing assistance and exposure during the course of the procedure. ARNOL
[2017-01-04] MEDS: LISINOPRIL 5 MG TABLET PO SCH (08:57)
[2017-01-04] MEDS: AMLODIPINE 5 MG TABLET PO SCH (08:57)
== END 2017-01-04 09:26 | disposition home or self-care (01) | DRG 419 ==
LOC: ED 03:33 → SRG 05:37
PROVIDERS: ADMIT Surgery; ATTEND Surgery